=== PATIENT | female | born 1930 | race Two or more races ===

== ENCOUNTER 2018-06-07 18:32 | Emergency (ER) | payer OTHER ==
[~2018-06-07] VITALS: Ht 149.9 cm; Wt 40.8 kg
[~2018-06-07 18:32] MED LIST: COZAAR25 MG; DEPAKOTE ER250 MG PO; IBUPROFEN800 MG PO; LISINOPRIL20 MG PO; LOSARTAN POTASS50 MG; METFORMIN HCL500 MG; ORPH100T PO; POTASSIUM CL 225 MEQ; SIMBASTATIN; SIMBASTATIN PO; SYNTHROID50 MCG; TOPROL XL50 MG PO; TRANXENE T-TA3.75 MG
== END 2018-06-07 21:09 | disposition home or self-care (01) ==
LOC: ER 18:32
DX: M71.552 Other bursitis, not elsewhere classified, left hip (principal); R35.8 Other polyuria